=== PATIENT | male | born 1970 | race African-American/Black ===

== ENCOUNTER 2024-04-17 13:07 | Inpatient (IN) | payer OTHER ==
[2024-04-17] MEDS ORDERED: NALOXONE (NARCAN) HCL 4 MG/0.1 ML SPRAY NS PRN (14:37)
[2024-04-17] MEDS ORDERED: POLYETHYLENE GLYCOL (HEALTHYLAX) 3350 17 GM PACKET PO PRN (14:37)
[2024-04-17] MEDS ORDERED: MAGNESIUM HYDROX 2400MG/30ML ORAL SUSPENSION 30 ML CUP PO PRN (14:37)
[2024-04-17] MEDS ORDERED: NICOTINE POLACRILEX 4 MG GUM BUC PRN (14:37)
[2024-04-17] MEDS ORDERED: NALOXONE HCL 0.4 MG/ML VIAL IVPUSH PRN (14:37)
[2024-04-17] MEDS ORDERED: BENZONATATE 200 MG CAPSULE PO PRN (14:37)
[2024-04-17] MEDS ORDERED: IBUPROFEN 400 MG TABLET (FP) PO PRN (14:37)
[2024-04-17] MEDS ORDERED: LOPERAMIDE HCL 2 MG CAPSULE PO PRN (14:37)
[2024-04-17] MEDS ORDERED: guaiFENesin 600 MG TABLET.ER (FP) PO PRN (14:37)
[2024-04-17] MEDS ORDERED: NICOTINE 14 MG/24 HOURS TOPICAL PATCH TD PRN (14:37)
[2024-04-17] MEDS ORDERED: NICOTINE POLACRILEX 4 MG LOZENGE BC PRN (14:37)
[2024-04-17] MEDS: THIAMINE 100 MG TABLET PO SCH (21:21)
[2024-04-17] MEDS: MELATONIN 5 MG TABLETS PO SCH (21:21)
[2024-04-18] MEDS: PRENATAL VITAMINS W/ FOLIC ACID TABLET (FP) PO SCH (10:04)
[2024-04-18] MEDS: ACETAMINOPHEN 325 MG TABLET (FP) PO PRN (10:05)
[2024-04-18] MEDS: NALTREXONE HCL 50 MG TABLET PO SCH (10:06)
[2024-04-20] MEDS: MAG HYDROX/AL HYDROX/SIMETH 30 ML UNIT-DOSE CUP PO PRN (08:43)
[2024-04-20] MEDS: hydrOXYzine PAMOATE 25 MG CAPSULE (FP) PO PRN (21:38)
[2024-04-21] MEDS: METHOCARBAMOL 500 MG TABLET PO PRN (21:42)
[2024-04-23] MEDS: IBUPROFEN 600 MG TABLET (FP) PO PRN (03:46)
[2024-04-23] MEDS: BACLOFEN 10 MG TABLET (FP) PO SCH (15:43)
[2024-04-23] MEDS: AMOX TR/POT CLAV 500MG/125MG TABLETS (FP) PO SCH (18:00)
[2024-04-27] MEDS: LIDOCAINE 5% TOPICAL PATCH TP SCH (12:41)
[2024-04-27] MEDS: LIDOCAINE PATCH REMOVAL MC SCH (21:14)
[2024-04-28] MEDS: ARTIFICIAL TEARS OPHTHALMIC DROPS OU PRN (09:51)
[2024-04-29] MEDS ORDERED: ONDANSETRON 8 MG TABLET (FP) PO PRN (11:05)
[2024-04-29] MEDS ORDERED: ONDANSETRON *ODT* 4 MG TABLET SL PRN (11:12)
[2024-05-01] MEDS: OXYMETAZOLINE 0.05% NASAL SOLUTION 15 ML BOTTLE NS PRN (13:31)
[2024-05-02] MEDS: BENZOCAINE/MENTH/CETYLPYRD CL 1 EACH LOZENGE MM PRN (00:36)
[2024-05-02] MEDS: BENZOCAINE/MENTHOL (CHLORASEPTIC ) LOZENGE MM PRN (06:36)
[2024-05-02] MEDS: BENZOCAINE 20 % GEL TUBE MM PRN (21:25)
[2024-05-04 06:57] VITALS: BP 130/75; PULSE 67; RESP 20; TEMP 97.5
[2024-05-04] MEDS: NALOXONE (NYS OPIOID OVERDOSE PROGRAM) 4 MG/0.1 ML SPRAY NS SCH (13:27)
[2024-05-07] MEDS ORDERED: NALTREXONE MICROSPHERES (VIVITROL) 380 MG DISP.SYRIN IM ONE (10:00)
== END 2024-05-04 13:20 | disposition home or self-care (01) | DRG 772 ==
LOC: YASAS 13:07 → Y5N 13:09
PROVIDERS: ADMIT Psychiatry & Neurology Pain Medicine; ATTEND Psychiatry & Neurology Pain Medicine
PROC: HZ42ZZZ Group Counseling for Substance Abuse Treatment, Cognitive-Behavioral (ICD-10-PCS; principal; 2024-04-17)
DX: F10.20 Alcohol dependence, uncomplicated (principal); F14.20 Cocaine dependence, uncomplicated; F12.20 Cannabis dependence, uncomplicated; F11.20 Opioid dependence, uncomplicated; F17.210 Nicotine dependence, cigarettes, uncomplicated; F41.9 Anxiety disorder, unspecified; H04.123 Dry eye syndrome of bilateral lacrimal glands; K02.9 Dental caries, unspecified; M54.41 Lumbago with sciatica, right side; G89.29 Other chronic pain; Z99.89 Dependence on other enabling machines and devices
CPT/HCPCS: J0475